=== PATIENT | female | born 1995 | race African-American/Black ===

== ENCOUNTER 2019-02-02 16:51 | Emergency (ER) | payer OTHER ==
[2019-02-02 17:01] VITALS: BP 128/83
[2019-02-02] MEDS ORDERED: ACETAMINOPHEN 325 MG TABLET PO ONE (17:09)
--- NOTE | 2019-02-02 17:13 | ER Document Report ---
HPI - HPI Patient complains to provider of: left knee pain Time Seen by Provider: 02/02/19 17:02 Onset: This afternoon Onset/Duration: Sudden Quality of pain: Sharp Pain Level: 5 Context: Patient states that she was jumping rope today and felt a sudden crack in her left knee. Patient complains of pain since then. 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 Associated Symptoms: Other - Left knee pain Exacerbated by: Standing, Movement, Walking Relieved by: Denies Similar symptoms previously: Yes Recently seen / treated by doctor: No - ROS ROS below otherwise negative: Yes Systems Reviewed and Negative: Yes All other systems reviewed and negative - NEURO Neurology: DENIES: Weakness - REPRODUCTIVE Reproductive: DENIES: : - MUSCULOSKELETAL Musculoskeletal: REPORTS: Extremity pain - DERM Skin Color: Normal Skin Problems: None Past Medical History - General Information source: Patient - Social History Smoking Status: Never Smoker Frequency of alcohol use: None Drug Abuse: None Occupation: Daycare Family History: Reviewed & Not Pertinent Musculoskeletal Medical History: Reports Other - Left knee flexion contracture Surgical Hx: Negative Vertical Provider Document - CONSTITUTIONAL Agree With Documented VS: Yes Exam Limitations: No Limitations General Appearance: WD/WN, No Apparent Distress - INFECTION CONTROL TRAVEL OUTSIDE OF THE [place] IN LAST 30 DAYS: No - HEENT HEENT: Atraumatic, Normocephalic - NECK Neck: Normal Inspection - RESPIRATORY Respiratory: No Respiratory Distress - CARDIOVASCULAR Pulses: Normal: Dorsalis pedis - MUSCULOSKELETAL/EXTREMETIES Musculoskeletal/Extremeties: MAEW, Tender - Left knee joint tenderness to popliteal area. No laxity with varus or valgus maneuvers. Patellar tendon intact. Patient unable to fully extend the left knee to 180 degrees. negative: Edema - NEURO Level of Consciousness: Awake, Alert, Appropriate - DERM Integumentary: Warm, Dry, No Rash Course - Vital Signs Vital signs: Temp Pulse Resp BP Pulse Ox 98.0 F 75 20 128/83 H 98 02/02/19 16:59 02/02/19 16:59 02/02/19 16:59 02/02/19 16:59 02/02/19 16:59 - Diagnostic Test Radiology reviewed: Reports reviewed Discharge - Discharge Clinical Impression: Left knee sprain Qualifiers: Encounter type: initial encounter Involved ligament of knee: unspecified ligament Qualified Code(s): S83.92XA - Sprain of unspecified site of left knee, initial encounter Condition: Stable Disposition: HOME, SELF-CARE Instructions: Use of Crutches ([facility]), Ice & Elevation ([facility]), Sprained Knee ([facility]) Additional Instructions: Return immediately for any new or worsening symptoms Followup with your primary care provider, call tomorrow to make a followup appointment Weightbearing as tolerated Follow-up with orthopedics for any persistent pain or problems Prescriptions: Naproxen [Naprosyn 250 Nmg Tablet] 1 tab PO BID #14 tablet Forms: Return to Work Referrals: [facility] ([email or web address] [Provider Group] - Follow up as needed
--- NOTE | 2019-02-02 17:42 | RADIOLOGY REPORT (SQ) ---
EXAM DESCRIPTION: KNEE LEFT 4 VIEW COMPLETED DATE/TIME: 02/02/2019 5:34 pm REASON FOR STUDY: felt crack in knee jumping rope, hx contracture COMPARISON: None. NUMBER OF VIEWS: Four views left knee LIMITATIONS: None. FINDINGS: There is no acute or significant bone, joint or soft tissue abnormality. OTHER: No other significant finding. IMPRESSION: NORMAL STUDY. TECHNICAL DOCUMENTATION: JOB ID: [id number] Reading location - IP/workstation name: [email or web address]
== END 2019-02-02 18:13 | disposition home or self-care (01) ==
LOC: ER 16:51
DX: S83.92XA Sprain of unspecified site of left knee, initial encounter (principal); M25.562 Pain in left knee; X58.XXXA Exposure to other specified factors, initial encounter
CPT/HCPCS: 99283